=== PATIENT | female | born 2000 | race Caucasian/White ===

== ENCOUNTER 2024-03-28 06:00 | Day surgery (SDC) | payer OTHER ==
[2024-03-22 14:12] VITALS: BMI 29.8
[2024-03-28] MEDS ORDERED: CEFAZOLIN SODIUM 2 GM in DEXTROSE 5%-WATER 100 ML IVPB ONE (06:13)
[2024-03-28 06:38] VITALS: RESP 16
[2024-03-28] MEDS ORDERED: DEXAMETHASONE SOD PHOSPHATE 10 MG/1 ML VIAL ONE (07:06)
[2024-03-28] MEDS ORDERED: ROPIVACAINE HCL/PF 100 MG/20 ML VIAL ONE (07:06)
[2024-03-28] MEDS ORDERED: MIDAZOLAM HCL 2 MG/2 ML SINGLE DOSE VIAL ONE (07:06)
[2024-03-28] MEDS ORDERED: SODIUM CHLORIDE 0.9% P/F 10 ML VIAL IJ ONE (07:06)
[2024-03-28] MEDS ORDERED: BUPIVACAINE HCL/EPINEPHRINE/PF 30 ML VIAL IJ ONE (07:21)
[2024-03-28] MEDS ORDERED: VANCOMYCIN 1,000 MG VIAL (RESTRICTED TO ID ONLY) ONE (07:21)
[2024-03-28] MEDS ORDERED: oxyCODONE HCL 5 MG TABLET PO PRN (07:31)
[2024-03-28] MEDS ORDERED: PROMETHAZINE HCL 25 MG/1 ML VIAL IVPB PRN (07:31)
[2024-03-28] MEDS ORDERED: LIDOCAINE 1% P/F 10 MG/ML VIAL ONE (07:36)
[2024-03-28] MEDS ORDERED: ACETAMINOPHEN INJECTION 100 ML IVPB ONE (07:36)
[2024-03-28] MEDS ORDERED: LACTATED RINGERS SOLUTION 1,000 ML IV SCH (07:45)
[2024-03-28] MEDS ORDERED: HYDROmorphone HCL/PF 1 MG/ML VIAL ONE (07:53)
[2024-03-28] MEDS ORDERED: PROPOFOL 20 ML ONE ×2 (07:54)
[2024-03-28] MEDS: TRANEXAMIC ACID 1000 MG/10 ML VIAL IVPUSH ONE (10:10)
[2024-03-28] MEDS ORDERED: FENTANYL CITRATE/PF 50 MCG/ML VIAL ONE (10:15)
[2024-03-28] MEDS ORDERED: ONDANSETRON 4 MG/2 ML VIAL ONE (10:15)
[2024-03-28] MEDS: ONDANSETRON 4 MG/2 ML VIAL IVPUSH PRN (10:20)
[2024-03-28 12:21] VITALS: BP 116/67; PULSE 77; TEMP 97.1
== END 2024-03-28 12:21 | disposition home or self-care (01) ==
LOC: FASU 06:00
PROVIDERS: ATTEND Orthopaedic Surgery
PROC: 0MSP4ZZ Reposition Left Knee Bursa and Ligament, Percutaneous Endoscopic Approach (ICD-10-PCS; principal; 2024-03-28 08:27)
DX: S83.512A Sprain of anterior cruciate ligament of left knee, initial encounter (principal); M23.52 Chronic instability of knee, left knee; X58.XXXA Exposure to other specified factors, initial encounter; Y93.9 Activity, unspecified; Y92.9 Unspecified place or not applicable
CPT/HCPCS: 81025; 94760; C1713; J0131; J1100